=== PATIENT | female | born 1960 | race Asian ===

== ENCOUNTER 2019-05-21 09:10 | Outpatient (CLI) | payer MEDICAID ==
[~2019-05-21 09:10] MED LIST: FLONASE ALLERG9.9 ML NS; OMEPRAZOLE40 M1 ORAL
[2019-05-21 09:15] VITALS: BP 96/71
--- NOTE | 2019-05-21 09:35 | General Progress Note ---
Assessment/Plan Assessment/Plan: GERD gastritis HP neg globus sensation dc ppi recommend ENT eval Subjective ROS Limited/Unobtainable: Yes Allergies: Coded Allergies: ASPIRIN (Verified Allergy, Intermediate, Itching, 01/10/19) CRAB (Verified Allergy, Intermediate, Hives, 01/10/19) Objective General Appearance: alert EENT: normal ENT inspection Neck: supple Cardiovascular: normal rate Respiratory/Chest: decreased breath sounds Abdomen: normal bowel sounds, non tender, soft Extremities: non-tender Pelon Graham MD May 21, 2019 09:35
== END 2019-05-21 12:52 | disposition home or self-care (01) ==
LOC: PAN 09:10
DX: K21.9 Gastro-esophageal reflux disease without esophagitis (principal); K29.70 Gastritis, unspecified, without bleeding; B96.81 Helicobacter pylori [H. pylori] as the cause of diseases classified elsewhere; Z88.6 Allergy status to analgesic agent
CPT/HCPCS: 99212